=== PATIENT | female | born 1960 | race Caucasian/White ===

== ENCOUNTER 2016-12-03 09:47 | Emergency (ER) | payer OTHER ==
[~2016-12-03] VITALS: Ht 170.2 cm; Wt 68.0 kg
[2016-12-03 09:51] VITALS: BP 159/85; PULSE 92; RESP 20; TEMP 97.5; O2SAT 94
[2016-12-03] MEDS ORDERED: methylPREDNISolone SOD SUCC 125 MG/2 ML VIAL IVP ONE (10:15)
[2016-12-03] MEDS ORDERED: SODIUM CHLORIDE 0.9% FLUSH 5 ML FLUSH IVF PRN (10:15)
--- NOTE | 2016-12-03 10:18 | PD ---
HPI Chief Complaint: Cold / Flu Symptoms Time Seen by Provider: 10:04 Travel History International Travel<30 days: No Contact w/Intl Traveler<30days: No Traveled to known affect area: No History of Present Illness HPI This is a 56-year-old female who presents to the emergency department with a 40- pack-year smoking history with one week of increasing shortness of breath, constant, moderate severity, worse when she exerts herself, feeling like she can 't catch her breath. She says she can't walk across the room without getting short of breath. She has been coughing up yellow mucus. She's been seen at to urgent cares in the past week. She says 5 days ago she was started on prednisone, azithromycin and albuterol. She says it "tore her up" and she felt like her breathing got worse. At that time she stopped smoking. She says that since then her breathing is been worsening. She went to an urgent care 2 days ago and was prescribed a cephalosporin and hydroxyzine and she stopped all her other treatments. 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 PFSH Past Medical History Hx Anticoagulant Therapy: No Diabetes: No Respiratory: No ?: Not Past Surgical History Hysterectomy: No Social History Tobacco Use: Yes Allergies-Medications (Allergen,Severity, Reaction): Coded Allergies: No Known Allergies (Unverified , 12/03/16) Reported Meds & Prescriptions Reported Meds & Active Scripts Active Reported Cefuroxime (Cefuroxime Axetil) 500 Mg Tab 500 Mg PO BID Hydroxyzine HCl 50 Mg Tab 50 Mg PO Q6HR PRN Review of Systems Except as stated in HPI: all other systems reviewed are Neg Physical Exam Narrative GENERAL:Well appearing, no acute distress SKIN: Warm and dry. HEAD: Atraumatic. Normocephalic. EYES: Pupils equal and round. No injection or drainage. ENT: Moist mucous membranes NECK: Trachea midline. CARDIOVASCULAR: Regular rate and rhythm. No murmur appreciated. RESPIRATORY: Diffuse wheezing, tachypnea, prolonged expiratory phase GASTROINTESTINAL: Abdomen soft, non-tender, nondistended. MUSCULOSKELETAL: No obvious deformities. NEUROLOGICAL: Awake and alert. No obvious cranial nerve deficits. Moving all extremities. PSYCHIATRIC: Appropriate mood and affect; insight and judgment normal. Data Data Last Documented VS Vital Signs Date Time Temp Pulse Resp B/P Pulse Ox O2 Delivery O2 Flow Rate FiO2 12/03/16 11:16 85 16 139/74 100 Room Air 12/03/16 09:51 97.5 Orders Basic Metabolic Panel (Bmp) (12/03/16 10:15) Complete Blood Count With Diff (12/03/16 10:15) Ecg Monitoring (12/03/16 10:15) Iv Access Insert/Monitor (12/03/16 10:15) Oximetry (12/03/16 10:15) Oxygen Administration (12/03/16 10:15) Methylprednisolone So Succ Inj (Solumedr (12/03/16 10:15) Albuterol-Ipratropium Neb (Duoneb Neb) (12/03/16 10:15) Sodium Chloride 0.9% Flush (Ns Flush) (12/03/16 10:15) Labs Laboratory Tests Test 12/03/16 10:50 White Blood Count 10.9 TH/MM3 Red Blood Count 4.62 MIL/MM3 Hemoglobin 14.6 GM/DL Hematocrit 42.1 % Mean Corpuscular Volume 91.2 FL Mean Corpuscular Hemoglobin 31.6 PG Mean Corpuscular Hemoglobin 34.6 % Concent Red Cell Distribution Width 12.7 % Platelet Count 355 TH/MM3 Mean Platelet Volume 7.7 FL Neutrophils (%) (Auto) 54.6 % Lymphocytes (%) (Auto) 35.3 % Monocytes (%) (Auto) 5.4 % Eosinophils (%) (Auto) 4.0 % Basophils (%) (Auto) 0.7 % Neutrophils # (Auto) 6.0 TH/MM3 Lymphocytes # (Auto) 3.8 TH/MM3 Monocytes # (Auto) 0.6 TH/MM3 Eosinophils # (Auto) 0.4 TH/MM3 Basophils # (Auto) 0.1 TH/MM3 CBC Comment DIFF FINAL Differential Comment Sodium Level 143 MEQ/L Potassium Level 4.3 MEQ/L Chloride Level 107 MEQ/L Carbon Dioxide Level 27.9 MEQ/L Anion Gap 8 MEQ/L Blood Urea Nitrogen 16 MG/DL Creatinine 0.73 MG/DL Estimat Glomerular Filtration 83 ML/MIN Rate Random Glucose 89 MG/DL Calcium Level 8.6 MG/DL MDM Medical Decision Making Medical Screen Exam Complete: Yes Emergency Medical Condition: Yes Interpretation(s) Afebrile, hypertensive, mild hypoxia No leukocytosis Electrolytes are reassuring Differential Diagnosis Pneumonia, COPD exacerbation, bronchitis, viral syndrome Narrative Course This is a 56-year-old female who presents to the emergency department with shortness of breath and a productive cough with yellow sputum that's been present for one week. She is taken to antibiotics but not to completion, and was on prednisone but stopped it early. On arrival she is mildly dyspneic with diffuse wheezing consistent with COPD. She has a [id number] smoking history. She's never been told that she has emphysema or COPD before. I counseled her on smoking cessation. She was placed on a monitor and an IV was established. Labs are obtained which were reassuring. She just had a chest x-ray several days ago which she reports was normal. She's already on cefuroxime for potential pneumonia. 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 She was given serial bronchodilator treatments and a dose of IV steroids. She feels much better. She wants to go home. Her pulse ox is between 90 and 93. I urged her to complete her medications as prescribed and to return to the emergency department if she feels worse. She expressed understanding. Diagnosis Primary Impression: COPD exacerbation Patient Instructions: General Instructions Additional Instructions: If you develop severe shortness of breath, chest pain, or difficulty breathing return to the emergency department. Use albuterol every 4 hours for the next 2 days. Then use as needed for wheezing. Complete your course of steroids. Complete your course of antibiotics. It is very important that you obtain a primary care physician as you have lung disease due to your smoking. Med/Other Pt SpecificInfo: Prescription(s) given Scripts Albuterol 8.5 GM Inh (Proair Hfa 8.5 GM Inh)90 Mcg/Act Aer2 Puff INH Q4-6H PRN ( SHORTNESS OF BREATH) #1 INHALER Ref 0 108 mcg/actuation Prov:Dinorah Guerrero MD 12/03/16 Prednisone (48) 10 mg tab Dose Pack 10 Mg Dspk10 Mg PO DIRECTED #1 DSPK Ref 0 Prov:Dinorah Guerrero MD 12/03/16 Disposition: 01 DISCHARGE HOME Condition: Stable Dinorah Guerrero MD Dec 03, 2016 10:18
[2016-12-03 10:19] VITALS: RESP 18; O2SAT 95
[2016-12-03] MEDS ORDERED: CEFU1TAB20 PO (10:27)
[2016-12-03] MEDS ORDERED: HYDR50TA94 PO (10:27)
[2016-12-03] MEDS: RESP: ALBUTEROL 2.5 MG/IPRATROPIUM 0.5 MG NEB (SCH) INH ×2 (10:32→10:33)
[2016-12-03 10:58] LABS: BASOPHIL # 0.1 TH/MM3 (0-0.2); BASOPHIL % 0.7 % (0.0-2.0); EOSINOPHIL # 0.4 TH/MM3 (0-0.4); HEMATOCRIT 42.1 % (35.0-46.0); HEMO FLAGS DIFF FINAL; LYMPH % 35.3 % (9.0-44.0); LYMPHOCYTE # 3.8 TH/MM3 (1.0-4.8); MEAN CELL VOLUME 91.2 FL (80.0-100.0); MEAN CORPUSCULAR HEMOGLOBIN 31.6 PG (27.0-34.0); MEAN CORPUSCULAR HGB CONC 34.6 % (32.0-36.0); MONO % 5.4 % (0.0-8.0); NEUT % 54.6 % (16.0-70.0); PLATELET COUNT 355 TH/MM3 (150-450); RED BLOOD COUNT 4.62 MIL/MM3 (4.00-5.30); RED CELL DISTRIBUTION WIDTH 12.7 % (11.6-17.2); WHITE BLOOD COUNT 10.9 TH/MM3 (4.0-11.0)
[2016-12-03 11:06] LABS: POTASSIUM 4.3 MEQ/L (3.5-5.1)
[2016-12-03 11:09] LABS: BICARBONATE 27.9 MEQ/L (21.0-32.0)
[2016-12-03 11:16] VITALS: BP 139/74; PULSE 85; RESP 16; O2SAT 100
[2016-12-03] MEDS ORDERED: ALBUAER3 INH (11:29)
[2016-12-03] MEDS ORDERED: PRED10PA2 PO (11:29)
[2016-12-03 11:57] VITALS: BP 131/69
== END 2016-12-03 11:59 | disposition home or self-care (01) ==
LOC: PHED 09:47
DX: J44.1 Chronic obstructive pulmonary disease with (acute) exacerbation (principal); R05 Cough; Z87.891 Personal history of nicotine dependence
CPT/HCPCS: 80048; 85025; 94640; 94664; 96374; 99284; J2930

== ENCOUNTER 2017-07-23 15:40 | Emergency (ER) | payer OTHER ==
[~2017-07-23] VITALS: Ht 170.2 cm; Wt 74.0 kg
[~2017-07-23 15:40] MED LIST: ALBUAER3 INH; CEFU1TAB20 PO; HYDR50TA94 PO; PRED10PA2 PO
[2017-07-23 15:55] VITALS: BP 151/75; PULSE 86; RESP 16; TEMP 97.4; O2SAT 97
--- NOTE | 2017-07-23 17:05 | RADRPT ---
EXAM DATE/TIME: 07/23/2017 16:33 [facility] COMPARISON: No previous studies available for comparison. INDICATIONS : Right foot pain. MEDICAL HISTORY : None. SURGICAL HISTORY : Right foot pin. ENCOUNTER: Initial ACUITY: 1 day PAIN SCORE: 5/10 LOCATION: Right foot. FINDINGS: Three view examination of the right foot demonstrates no soft tissue swelling, dislocation, or fractu re. The tarsal bones appear intact. The interphalangeal and metatarsophalangeal joints are intact. The calcaneus is intact. Bony mineralization is normal. A single screw traverses the base of the f irst proximal phalanx. No acute fracture or dislocation. CONCLUSION: No acute disease. Kishore Wolfe MD on July 23, 2017 at 17:03 Board Certified Radiologist. This report was verified electronically.
--- NOTE | 2017-07-23 17:18 | PD ---
HPI Chief Complaint: Injury Time Seen by Provider: 16:08 Travel History International Travel<30 days: No Contact w/Intl Traveler<30days: No Traveled to known affect area: No History of Present Illness HPI 57-year-old female since emergency department for evaluation of right foot pain. Patient reports today she twisted the foot while walking. The fall to the ground. No head injury or loss consciousness. She has pain in the dorsal aspect of the foot which is constant, nonradiating. No paresthesias. Worse with weightbearing with a fast. Pain scale 4/10. PFSH Past Medical History Hx Anticoagulant Therapy: No COPD: Yes Diabetes: No Respiratory: No Tetanus Vaccination: < 5 Years Influenza Vaccination: Yes ?: Not Menopausal: Yes Past Surgical History Hysterectomy: No Other Surgery: Yes (carpel tunnel right hand) Social History Alcohol Use: No Tobacco Use: No Substance Use: No Allergies-Medications (Allergen,Severity, Reaction): Coded Allergies: codeine (Verified Allergy, Intermediate, RASH, 07/23/17) Reported Meds & Prescriptions Reported Meds & Active Scripts Active No Active Prescriptions or Reported Medications Review of Systems Except as stated in HPI: all other systems reviewed are Neg Physical Exam Narrative GENERAL: Well-nourished, well-developed patient. SKIN: Focused skin assessment warm/dry. HEAD: Normocephalic. EYES: No scleral icterus. No injection or drainage. NECK: Supple, trachea midline. No JVD or lymphadenopathy. CARDIOVASCULAR: Regular rate and rhythm without murmurs, gallops, or rubs. RESPIRATORY: Breath sounds equal bilaterally. No accessory muscle use. GASTROINTESTINAL: Abdomen soft, non-tender, nondistended. MUSCULOSKELETAL: No cyanosis, or edema. Right lower extremity: Tenderness to the dorsal aspect of the right foot. Mild swelling noted. 2+ pulses. Brisk cap refill. Normal sensation. Patient freely moves ankle and all toes. Data Data Last Documented VS Vital Signs Date Time Temp Pulse Resp B/P (MAP) Pulse Ox O2 Delivery O2 Flow Rate FiO2 07/23/17 15:55 97.4 86 16 151/75 (100) 97 Orders Orders Foot, Complete ([id number]) (07/23/17 ) [facility] Medical Decision Making Medical Screen Exam Complete: Yes Emergency Medical Condition: Yes Differential Diagnosis Metatarsal fracture versus midfoot sprain versus ankle sprain Narrative Course 57-year-old female presents emergency department for evaluation of foot pain status post twisting injury at 11 AM today. On exam patient has mild swelling and tenderness to the dorsal aspect of the foot including the base of the fifth metatarsal. X-ray was negative for fracture. The extremity is neurovascularly intact. Patient be treated for midfoot sprain. Diagnosis Primary Impression: Sprain Referrals: Primary Care Physician Additional Instructions: Use the Rafa wrap as directed. Ice and elevate the extremity. Take [id number] Motrin 600 800 mg every 6-8 hours as needed for pain. Follow-up with her primary doctor. Scripts No Active Prescriptions or Reported Meds Disposition: 01 DISCHARGE HOME Condition: Stable Kira Martins Jul 23, 2017 17:18
== END 2017-07-23 17:30 | disposition home or self-care (01) ==
LOC: PHEFT 15:40
DX: S93.601A Unspecified sprain of right foot, initial encounter (principal); X50.1XXA Overexertion from prolonged static or awkward postures, initial encounter; Y93.01 Activity, walking, marching and hiking
CPT/HCPCS: 73630; 99283